=== PATIENT | male | born 1965 ===

== ENCOUNTER → 2017-02-06 | Emergency (ER) | payer BC, MEDICAID, OTHER ==
[~2017-02-06] MED LIST: DIPHENHYDRAMINE HCL 50 MG/1 ML VIAL ONE; KETOROLAC TROMETHAMINE 30 MG/ML 1 ML VIAL ONE; METOCLOPRAMIDE HCL 5 MG/ML 2ML VIAL ONE
[2017-02-06 21:59] LABS: ABSOLUTE NEUTROPHIL COUNT 3.5 K/mm3 (1.8-7.7); BASO % 0.4 % (0.2-1.0); EOS # 0.1 (0.0-0.5); EOS % 1.6 % (0.9-2.9); HEMOGLOBIN 13.7 gm/l (14.0-18.0); IMM NEUT% 0.1 % (0-1); LYMPH # 2.5 (1.0-4.8); LYMPH % 35.2 % (15-45); MEAN CORPUSCULAR HEMOGLOBIN 32.3 pg (27.0-31.0); MEAN CORPUSCULAR HGB CONC 35.1 g/dl (33.0-37.0); MEAN PLATELET VOLUME 8.8 fl (7.4-10.4); MONO # 0.9 (0.0-0.8); MONO % 12.9 % (4-12); NEUT % 49.8 % (43-75); PLATELET COUNT 246 K/mm3 (130-400); RED CELL DISTRIBUTION WIDTH 12.5 % (11.5-14.5)
[2017-02-06 22:17] LABS: ALB/GLOB RATIO 1.3 (>1.0); ALBUMIN 4.1 gm/dL (3.5-5.7); CALCIUM 9.9 mg/dL (8.6-10.3)
[2017-02-06 22:51] LABS: PH,URINE 6.5 (5.0-8.0); URINE BILIRUBIN NEGATIVE (NEGATIVE); URINE BLOOD NEGATIVE (NEGATIVE); URINE GLUCOSE (UA) NEGATIVE (NEGATIVE); URINE LEUKOCYTE ESTERASE NEGATIVE (NEGATIVE); URINE NITRITE NEGATIVE (NEGATIVE); URINE PROTEIN NEGATIVE (NEGATIVE); URINE UROBILINOGEN NORMAL (0-1 mg/dl)
[2017-02-06 22:54] LABS: URINE APPEARANCE CLEAR; URINE COLOR YELLOW
[2017-02-09 13:44] LABS: HEP B CORE AB, IGM Non React (Non React); HEPATITIS B SURFACE AG Non React (Non React); HEPATITIS C ANTIBODY Non React (Non React)
--- NOTE | 2017-02-12 14:21 | CT ---
HEAD W/O CON History: Headache with sensory changes. Comparison: 06/22/2010. Procedure: 1 mm axial images were obtained through the head from the vertex to the base of the skull without intravenous contrast. Stacked reconstructed 5 mm images were then obtained in the axial, coronal and sagittal planes. Findings: Note is again made of the small calcific foci along the anterior left frontal convexity. The appearance is stable from the appearance on prior examination. The lateral ventricles are of normal size and configuration. No evidence of midline shift is seen. No mass or mass effect is identified. No evidence of intra or extra-axial fluid collections or hemorrhage is seen. The layne-white differentiation is well preserved. The basilar cisterns are uneffaced. The posterior fossa structures are unremarkable. Bone windows demonstrate no acute osseous abnormalities. Impression: 1. Dystrophic calcific foci along the anterior left frontal convexity, stable from the prior examination. 2. An otherwise negative unenhanced CT scan of the head. The findings were called to the emergency room at 2318 hours,02/06/2017, by [facility].
== END ==
LOC: ED 20:38
DX: R51 Headache (principal); R94.5 Abnormal results of liver function studies; E03.9 Hypothyroidism, unspecified
CPT/HCPCS: 86705; 86709; 86803; 86340; 85025; 80053; 81003; 70450; 96375 ×2; 99284; 96374; 96361 ×2; 99283; J1200; J2765; J1885